=== PATIENT | female | born 1985 | race Caucasian/White ===

== ENCOUNTER 2020-12-25 19:09 | Emergency (ER) | payer BC, SELFPAY ==
--- NOTE | ~2020-12-25 | XR_ITS ---
EXAMINATION: XR knee RT 2V DATE: 12/25/2020 23:48 INDICATION: Right knee pain TECHNIQUE: Two views of the right knee were obtained. COMPARISON: None. FINDINGS: Alignment is normal. No fracture or osteochondral lesion. There is mild tricompartmental os teoarthritis characterized by tiny marginal osteophytes. No joint effusion/synovitis. Soft tissues a re unremarkable. IMPRESSION: 1. No acute osseous abnormality. Reviewed, dictated and finalized at location A.
--- NOTE | ~2020-12-25 | CT_ITS ---
EXAMINATION: CT abdomen pelvis wo con DATE: 12/25/2020 20:52 INDICATION: Back pain TECHNIQUE: Computed tomography (CT) of the abdomen and pelvis was performed without intravenous contr ast. The dose-length product (DLP) was 1602.05 mGy-cm. Automated exposure control and iterative recon struction technique were employed. COMPARISON: 08/11/2010 FINDINGS: The lung bases are clear. The heart size is normal. The liver, spleen, pancreas, gallbladde r, and adrenal glands are normal. The kidneys are unremarkable. No stones are identified in the kidne ys, ureters, or bladder. There is no hydronephrosis or hydroureter. No pathologically enlarged abdomi nal or pelvic lymph nodes are identified. There is an approximately 7.9 cm cystic lesion arising from the right adnexa. The visualized osseous structures are unremarkable. IMPRESSION: 1. 7.9 cm cystic lesion in the right adnexa which could reflect a simple cyst. Follow-up with pelvic ultrasound is recommended. Reviewed, dictated and finalized at location A.
--- NOTE | ~2020-12-25 | CT_ITS ---
EXAMINATION: CT lumbar spine wo con DATE: 12/25/2020 23:41 INDICATION: Low back pain after fall TECHNIQUE: Computed tomography (CT) of the lumbar spine was performed without intravenous contrast. T he dose-length product (DLP) was 1411.74 mGy-cm. Iterative reconstruction was used. COMPARISON: None FINDINGS: There is no fracture, dislocation, or subluxation. The vertebral body heights, alignment, a nd intervertebral disc spaces are normal. A small amount of subcutaneous gas to the left of midline i n the lower back is unchanged and could reflect an injection site. The paravertebral soft tissues are otherwise unremarkable. IMPRESSION: 1. No acute osseous abnormality. Reviewed, dictated and finalized at location A.
[2020-12-25 19:13] VITALS: BP 205/90; PULSE 106; RESP 20; TEMP 36.6; O2SAT 98
[2020-12-25 19:18] VITALS: BP 178/90; PULSE 106; RESP 18; TEMP 36.7; O2SAT 98
--- NOTE | 2020-12-25 19:44 | ED.BACK ---
HPI - Back Pain/Injury General Chief Complaint: Back Pain/Injury Stated Complaint: back pain Time Seen by Provider: 12/25/20 19:16 Source: patient Mode of arrival: ambulatory Limitations: no limitations History of Present Illness HPI Narrative: Patient is a 35-year-old female complaining of low back pain, 9 out of 10, dull, aching, nonradiating, worse with movement and palpation, started approximately 2 weeks ago. Patient states that she does have a history of low back pain especially when prolonged walking. Patient denies any injury. Patient denies any weakness, numbness, incontinence, fever, chills or urinary symptoms. Related Data Allergies Allergy/AdvReac Type Severity Reaction Status Date / Time hydrocodone Allergy Unknown Rash Verified 12/25/20 19:21 Review of Systems Review of Systems: All systems reviewed & are unremarkable except as noted in HPI and below Constitutional: Constitutional: Denies body ache(s), Denies chills, Denies excessive sweating, Denies fatigue, Denies fever(s), Denies headache(s), Denies lethargy, Denies malaise, Denies weakness and Denies weight loss Eyes: Eyes: Denies blurry vision, Denies change in vision and Denies loss of vision ENT: Denies dizziness, Denies ear discharge, Denies headache(s), Denies lip swelling, Denies epistaxis, Denies nasal congestion, Denies neck pain, Denies throat swelling and Denies tongue swelling Cardiovascular: Cardiovascular: Denies chest pain, Denies chest pain at rest, Denies chest pain with activity, Denies diaphoresis, Denies rapid heart rate, Denies edema, Denies irregular heart rhythm, Denies lightheadedness, Denies palpitations, Denies dyspnea and Denies dyspnea on exertion Respiratory: Respiratory: Denies chest congestion, Denies cough, Denies hemoptysis, Denies dyspnea and Denies dyspnea on exertion Gastrointestinal: Gastrointestinal: Denies abdominal pain, Denies melena, Denies hematochezia, Denies diarrhea, Denies nausea, Denies vomiting and Denies hematemesis Musculoskeletal: Musculoskeletal: Denies abnormal gait, Denies deformity, Denies joint swelling, Denies limited range of motion, Denies neck pain and Denies numbness Neurologic: Denies Abnormal speech present, Denies abnormal gait, Denies confusion, Denies dizziness, Denies headache(s), Denies focal weakness, Denies loss of vision, Denies numbness, Denies Other visual disturbances, Denies Sensory deficit (Neuro) and Denies weakness Psychiatric: Psychiatric: Denies confusion, Denies depression, Denies auditory hallucinations, Denies homicidal ideation and Denies suicidal ideation Endocrine: Endocrine: Denies cold intolerance, Denies excessive sweating, Denies fatigue, Denies heat intolerance and Denies palpitations Hematologic/Lymphatic: Hematologic/Lymphatic: Denies easy bleeding and Denies easy bruising Allergic/Immunologic: Allergic/Immunologic: Denies lip swelling, Denies throat swelling and Denies tongue swelling PMFSH Social History Social History Alcohol intake: current Comments Past medical history: Hypertension Family history: Noncontributory Social history non-smoker no EtOH or drug use Exam Const: General: cooperative, healthy appearing, comfortable, no acute distress, well developed, alert and awake; No confusion Orientation/consciousness: oriented to person, oriented to place, oriented to time, patient oriented x3 and No confusion Limitations: no limitations HENMT: Head: normal to inspection, normocephalic and atraumatic Ears: hearing grossly normal bilaterally, TM normal on the right and TM normal on the left General nose exam: Normal external nose present, Normal nares present and No nasal discharge present Face and sinus: normal facial exam Mouth: Yes Normal oral and palatal mucosa present, Yes lip normal, Yes tongue normal and Yes oropharynx normal Throat: posterior oropharynx normal, tonsils normal and uvula midline Eyes: General: appearance normal, both eyes and all relate
[2020-12-25] MEDS: diazePAM INJ (*CRX) 10 MG/2 ML SYRINGE 5 MG IM ×2 (20:12→23:12)
[2020-12-25] MEDS: KETOROLAC 30 MG/ML VIAL (*BKC) IV PUSH (20:12)
[2020-12-25 20:14] LABS: Add Urine Microscopic? YES; Appearance Urine Clear (Clear); Bilirubin Urine Negative (Negative); Blood Urine 2+ (Negative); Color Urine Straw (Yellow); Glucose Urine UA 3+ mg/dL (Negative); Ketones Urine Negative (Negative); Leukocyte Esterase Ur Negative LEU/UL (Negative); Mucus Urine Rare /lpf; Nitrate Urine Negative (Negative); Protein Urine Negative (Negative); RBC Urine 51-75 /hpf (0-2); Specific Grav Ur 1.025 (1.001-1.035); Squamous Epithelial Cell Urine Rare /hpf (Few); Urobilinogen Urine Negative mg/dL (<2.0); WBC Urine 0-3 /hpf
[2020-12-25 20:44] LABS: Basophils Percent Auto 0.6 % (0.2-1.2); Eosinophils Absolute Auto 0.2 K/mm3 (0-0.3); Eosinophils Percent Auto 3.5 % (0-4.4); Hematocrit 29.5 % (37.0-47.0); Hemoglobin 9.3 g/dL (12.0-15.0); Immature Granulocyte Absolute 0.05 K/mm3 (0.00-0.031); Immature Granulocyte Percent A 0.8 % (0-0.5); Lymphocytes Absolute Auto 1.97 K/mm3 (0.9-3.2); Lymphocytes Percent Auto 29.8 % (18.3-44.2); Mean Corpuscular HGB Conc 31.5 g/dl (32-36); Mean Corpuscular Hemoglobin 26.1 pg (26-34); Mean Corpuscular Volume 82.6 fl (80-100); Mean Platelet Volume 10.9 fl (7.4-10.4); Monocytes Absolute Auto 0.5 K/mm3 (0.1-0.6); Monocytes Percent Auto 7.1 % (2.6-8.5); Neutrophils Absolute Auto 3.8 K/mm3 (1.3-6.7); Neutrophils Percent Auto 58.2 % (45.5-73.1); Platelet Count Result 364 k/mm3 (150-375); Red Blood Count 3.57 M/mm3 (4.2-5.4); Red Cell Distribution Width 14.9 % (11.5-14.5); White Blood Count 6.6 K/mm3 (4.5-10.0)
[2020-12-25 20:45] LABS: Anion Gap 5 mmol/L (8-16); Blood Urea Nitrogen 14 mg/dL (7-17); Calcium 9.1 mg/dL (8.4-10.2); Carbon Dioxide 29 mmol/L (22-30); Chloride 104 mmol/L (98-107); Estimated CRCL calculation 145 ml/min; Estimated Glomerular Filt Rate > 60; Glucose 267 mg/dL (65-105); Potassium 4.4 mmol/L (3.4-5.0); Sodium 138 mmol/L (137-145)
[2020-12-25 21:51] VITALS: BP 158/78; PULSE 80; RESP 18; O2SAT 99
--- NOTE | 2020-12-25 22:23 | PC.NURSE ---
patient yelling at and using foul language with staffs attempts to update. demanding to see doctor. dr Montero made aware
--- NOTE | 2020-12-25 22:50 | PC.NURSE ---
special service representative and ERP Dr. Dixon at bedside to reassess pt post fall out of stretcher.
--- NOTE | 2020-12-25 23:08 | PC.NURSE ---
verbal order from dr mao for Hydromorphone 1mg im and valium 5mg im [address] ct lumbar spine.
[2020-12-25] MEDS: HYDROmorphone HCL INJ (*CRX) 1 MG/ML SYR IM (23:12)
--- NOTE | 2020-12-25 23:26 | PC.NURSE ---
Report received from Ana brandon RN and ROBERTA Cohn. Awaiting disposition.
--- NOTE | 2020-12-25 23:45 | PC.NURSE ---
Pt to CT via stretcher.
--- NOTE | 2020-12-26 00:25 | PC.NURSE ---
Pt back in room, resting flat on back. States pain has decreased and is feeling better at this time. Denies needs at present. Made aware of pending disposition and to call if needs anything.
--- NOTE | 2020-12-26 01:15 | PC.NURSE ---
Pt resting on stretcher in side-lying position. Denies needs at present. Awaiting disposition.
--- NOTE | 2020-12-26 01:45 | PC.NURSE ---
Eri Sorenson, [employer] WORK[employer], at bedside discussing plan of care. D/C instructions are unchanged from previous. Rx x2 appear to have been sent to pt's pharmacy previously. Pt assisted up to sitting then standing position. Pt c/o dizziness and dry mouth. Explained that the medications could be doing that to her. Pt assisted to bedside chair awaiting a wheelchair. States dizziness is improving. Pt told not to stand unassisted.
--- NOTE | 2020-12-26 02:01 | PC.NURSE ---
Assisted to car with minimal assist getting in and out of wheelchair. Pt states dizziness is gone.
== END 2020-12-26 02:01 | disposition home or self-care (01) ==
PROVIDERS: Emergency Provider Emergency Medicine
DX: M54.5 Low back pain (principal)
CPT/HCPCS: 36415; 72131; 73560; 74176; 80048; 81001; 81025; 85025; 96372; 96374; 99284; J1170; J1885; J3360

== ENCOUNTER → 2021-01-05 01:37 | Outpatient (CLI) | payer OTHER, SELFPAY ==
[2021-01-05 19:39] LABS: SARS-CoV-2 RNA PCR Negative
== END ==
PROVIDERS: Visit Provider Obstetrics & Gynecology
DX: Z01.812 Encounter for preprocedural laboratory examination (principal); Z20.822 Contact with and (suspected) exposure to COVID-19
CPT/HCPCS: C9803; U0003; U0005

== ENCOUNTER 2021-01-05 08:55 | Outpatient (CLI) | payer OTHER, SELFPAY ==
--- NOTE | 2021-01-05 09:25 | ECG_ITS ---
Measurements Intervals [place] Rate: 97 P: 54 CO: 134 QRS: 40 QRSD: 91 T: 17 QT: 349 QTc: 445 Interpretive Statements SINUS RHYTHM NORMAL ECG Electronically Signed On 01-05-2021 11:52:45 CDT by Everett Mcwilliams D.O.
== END 2021-01-05 08:56 | disposition home or self-care (01) ==
LOC: ANHSURGERY 08:58
PROVIDERS: Visit Provider Obstetrics & Gynecology
DX: I10 Essential (primary) hypertension (principal); Z01.818 Encounter for other preprocedural examination
CPT/HCPCS: 93005

== ENCOUNTER 2021-01-08 00:58 | Day surgery (SDC) | payer BC, SELFPAY ==
[2021-01-01 11:57] VITALS: BMI 66.9
[2021-01-08] VITALS (18 sets, daily range): BP systolic 133–162; BP diastolic 57–96; PULSE 86–109; RESP 16–22; TEMP 36.6; O2SAT 94–100
--- NOTE | 2021-01-08 10:30 | SUR.PREOP ---
Informed patient and her that surgery was running about an hour behind. Voiced understanding.
[2021-01-08] MEDS: LACTATED RINGERS 1,000 ML 30 ML IV CONT ×2 (10:32→14:27)
[2021-01-08] MEDS: ACETAMINOPHEN 500 MG TABLET 1000 MG PO (10:32)
[2021-01-08] MEDS: KETOROLAC 15 MG/ML VIAL (*BKC) IV PUSH (10:34)
--- NOTE | 2021-01-08 11:05 | WPDANESEPPF ---
Anes - Initial Pre Proc Eval Procedure: Operation Date: 01/08/21 12:00 Proposed Procedures p Laparoscopic Right Ovarian Cystectomy, Hysteroscopy,Endometrial Biopsy and Polypectomy - Ashley Griffin MD Date/Time: 01/08/21 11:05 Surgeon: Ashley Griffin MD Pre Op Diagnosis: Polyp of Uterus, Cyst of right ovary Patient Data Age: 35 Gender: F Height: 5 ft 4 in Weight: 176.6 kg Last Vital Signs Temp 36.6 C 01/08/21 10:14 Pulse 100 01/08/21 10:14 Resp 20 01/08/21 10:14 BP 158/93 H 01/08/21 10:14 Pulse Ox 98 01/08/21 10:14 Allergies Allergy/AdvReac Type Severity Reaction Status Date / Time No Known Allergies Allergy Verified 01/08/21 10:03 Home Medications Medication Instructions Recorded Confirmed Type cyclobenzaprine 10 mg PO TID PRN #10 tablet 12/25/20 01/08/21 Rx naproxen [Naprosyn] 500 mg PO BID PRN #8 tablet 12/25/20 01/08/21 Rx albuterol 90 mcg INHALATION Q4H PRN 01/01/21 01/01/21 History bupropion HCl 150 mg PO DAILY 01/01/21 01/08/21 History citalopram 40 mg PO DAILY 01/01/21 01/08/21 History drospirenone (contraceptive) 1 tablet PO DAILY 01/01/21 01/08/21 History [Slynd] hydrochlorothiazide 12.5 mg PO DAILY 01/01/21 01/08/21 History hydrocodone-acetaminophen 1 tablet PO Q6H PRN 01/01/21 01/08/21 History losartan 100 mg PO DAILY 01/01/21 01/08/21 History Patient hx anesthesia problems: none Family hx anesthesia problems: none [facility] Past Medical History Medical History (Updated 01/08/21 @ 11:05 by Harley Jimenez MD) Anxiety Asthma Depression Morbid obesity PCOS (polycystic ovarian syndrome) Surgical History Surgical History (Updated 01/08/21 @ 11:08 by Harley Jimenez MD) History of appendectomy Social History Social History Smoking status: Never smoker Alcohol intake: current Alcohol use details: 1-2 EVERY FEW MONTHS Substance use: never Substance use type: does not use Living arrangements: with family Spiritual care concerns: No Anes - Eval Final PreProcedure Day of Procedure 01/08/21 11:05 Patient weight: super morbidly obese Heart: regular rate and rhythm Lungs: clear to auscultation Airway: Mallampati scale class II Neurological: alert and oriented Last oral intake: >/= 8 hours ASA classification: III Emergent: no Anesthetic plan: proceed Anesthesia type and monitoring: general ETT and standard monitoring Informed Consent: The patient's anesthetic plan and its attendant risks and benefits were discussed with the patient/family/POA. Questions were solicited and answers provided to the satisfaction of the patient/family/POA.
--- NOTE | 2021-01-08 11:33 | WPDHPUPDATE1 ---
History and Physical Update Update Date/Time: 01/08/21 11:33 History and Physical has been reviewed, including an updated exam of the patient. There are NO changes in the patient's condition. Risks, benefits, and alternatives have been discussed and questions answered. Patient agrees to proceed with procedure.
[2021-01-08 11:45] LABS: Glucose Point of Care 251 (65-105)
--- NOTE | 2021-01-08 11:56 | SUR.PREOP ---
1150; ACCUCHECK IS 251. PT STATES SHE IS NOT DIABETIC BUT HAS BEEN MEANING TO MENTION HIGH BLOOD SUGAR TO MY DOCTOR DR RODRIGUEZ NOTIFIED. NO ORDERS. ALSO CLARIFIED WITH DR HARRIS, NO ANTIBIOTIC ORDERED TODAY.
--- NOTE | 2021-01-08 13:10 | SUR.OPER ---
Right Ovarian Cyst Specimen hand delivered to lab by virginia Iqbal and received by Albin at 1309.
--- NOTE | 2021-01-08 14:25 | P.OP_ITS ---
Procedure Note - Detailed Date of procedure: 01/08/21 Pre-op diagnosis: Polyp of Uterus, Cyst of right ovary Post-op diagnosis: same (Left ovarian nodule, right ovarian tumor/cystic mass, endocervical mass, multiple endometrial polyps) Procedure performed: Laparoscopic Resection of left ovarian nodule, resection of right ovarian mass and right fallopian tube, resection pedunculated fibroid within the cervix, hysteroscopy D&C, hysteroscopic polypectomy/multiple Description of procedure: The patient was taken the operating room. She was prepped and draped in the dorsal lithotomy position after induction of general anesthesia. A 5 mm left upper quadrant incision was made in the abdominal skin with a scalpel. A 5 mm trocar was inserted the intra-abdominal cavity under direct visualization of the scope. A 5 mm left lower quadrant incision was made with the scalp on the abdominal skin and a 5 mm trocar was inserted the intra- abdominal cavity under direct visualization of the scope. A 5 mm infraumbilical incision was made with scalpel and a 5 mm trocar was inserted into the intra- abdominal cavity under direct visualization. Right ovarian mass was from the ovary using cautery and blunt dissection. The fallopian tube was scarred to the mass and was also removed. LigaSure Cautery was used to cauterize and transect the mesosalpinx paratubal tissue to from the adnexa. The tube was cauterized transected the area the cornua. The cyst was decompressed and cut into pieces and it was taken at the left lower quadrant trocar site along with the right fallopian tube. A nodule on the left ovary was removed using cautery and scissors and sharp blunt dissection. The right ovary was pexed using a 30 Vicryl. It was sutured to the pelvic sidewall lateral to the ureter.The pelvis was irrigated with copious amounts of normal saline. The pneumoperitoneum was reduced. The trocars were removed. The patient was taken recovery room stable condition. Sponge lap and needle counts were correct x2. Hysteroscopic portion of the procedure was performed. Speculum placed in vagina. The pedunculated fibroid was grasped and twisted from its stalk the intrauterine cavity. Hysteroscope was inserted. The above findings were noted. Two polyps were removed by using the hysteroscopic scissors. The bases were transected using scissors. A 3rd polyp in the left cornua could not be transected. And could not be removed using a curettage. The distention of the uterus was poor due to the dilated cervix from the pedunculated fibroid. A thorough curettage was performed of the endometrial cavity. Anesthesia: GETA Surgeon: Ashley Griffin MD Estimated blood loss (mL): 50 Drains: No Packing: No Complications: No immediate complications Condition: stable Disposition: PACU Findings: Right ovarian mass, left ovarian nodule, pedunculated fibroid prolapsed through the cervix, multiple endometrial polyps, a single polyp could not be resected, the nature of this polyp could not be determined. It was firm and could not be transected with scissors. It did not appear malignant.
--- NOTE | 2021-01-08 14:32 | SUR.PHASEI ---
1432- RAJIV Avelar notified of patient's BG [id number] at this time. No new orders.
[2021-01-08 14:35] LABS: Glucose Point of Care 282 (65-105)
[2021-01-08] MEDS: HYDROmorphone HCL INJ (*CRX) 1 MG/ML SYR 0.25 MG IV PUSH ×8 (14:35→15:37)
[2021-01-08] MEDS: ONDANSETRON INJ 4 MG/2 ML VIAL IV PUSH (16:15)
== END 2021-01-08 17:23 | disposition home or self-care (01) ==
PROVIDERS: Visit Provider Obstetrics & Gynecology
PROC: 0UDB8ZZ Extraction of Endometrium, Via Natural or Artificial Opening Endoscopic (ICD-10-PCS; CPT 58558; principal; 2021-01-08 12:00)
DX: N83.201 Unspecified ovarian cyst, right side (principal); D25.0 Submucous leiomyoma of uterus; N93.9 Abnormal uterine and vaginal bleeding, unspecified; N84.1 Polyp of cervix uteri; N84.0 Polyp of corpus uteri; N83.8 Other noninflammatory disorders of ovary, fallopian tube and broad ligament; Z79.51 Long term (current) use of inhaled steroids; F41.9 Anxiety disorder, unspecified; J45.909 Unspecified asthma, uncomplicated; F32.9 Major depressive disorder, single episode, unspecified; E66.01 Morbid (severe) obesity due to excess calories; Z68.44 Body mass index [BMI] 60.0-69.9, adult
CPT/HCPCS: 58661; 58558; 58662; 82948; 88302; 88304; 88305; 88329; 93005; 94002; A9270; C9803; J1100; J1170; J1885; J2250; J2405; J2704; J2710; J3010; J7030; J7120; U0003; U0005